=== PATIENT | male | born 1980 | race American Indian/Alaskan Native ===

== ENCOUNTER 2017-12-01 16:55 | Emergency (ER) | payer OTHER ==
[2017-12-01 17:04] VITALS: BP 129/79; PULSE 118; RESP 18; TEMP 98.7; O2SAT 98
[2017-12-01] MEDS ORDERED: Sodium Chloride 0.9% 1,000 ML IV STA ×2 (18:00→18:53)
--- NOTE | 2017-12-01 18:06 | ED PDOC ---
HPI:Nausea, Vomiting, Diarrhea Time Seen by Provider: 12/01/17 17:55 Chief Complaint (Nursing): Abdominal Pain Chief Complaint (Provider): Diarrhea History Per: Patient, Family History/Exam Limitations: no limitations Additional Complaint(s): Pt reports multiple episodes of diarrhea since 11 PM yesterday, associated with nausea and decreased appetite, abdominal pain only after drinking something, + tactile temp. Last took Motrin @ 5 AM today. Denies vomiting, hematochezia. Ate out last PM. Past Medical History Reviewed: Nursing Documentation, Vital Signs Vital Signs: Last Vital Signs Temp 98.7 F 12/01/17 17:00 Pulse 118 H 12/01/17 17:00 Resp 18 12/01/17 17:00 BP 129/79 12/01/17 17:00 Pulse Ox 98 12/01/17 17:00 - Medical History PMH: Back Problems (multiple herniated disks) - Surgical History Surgical History: No Surg Hx - Family History Family History: States: Unknown Family Hx - Social History Current smoker - smoking cessation education provided: No Alcohol: None - Home Medications Home Medications: Ambulatory Orders Medication Instructions Recorded Dicyclomine [Bentyl] 20 mg PO BID #30 tab 12/01/17 - Allergies Allergies/Adverse Reactions: Allergies Allergy/AdvReac Type Severity Reaction Status Date / Time No Known Allergies Allergy Verified 10/04/15 19:16 Review of Systems Constitutional: Positive for: Fever (Tactile), Chills, Sweats. Negative for: Weakness Cardiovascular: Negative for: Chest Pain Respiratory: Negative for: Cough, Shortness of Breath Gastrointestinal: Positive for: Nausea, Abdominal Pain, Diarrhea. Negative for : Vomiting Genitourinary Male: Negative for: Dysuria, Hematuria Musculoskeletal: Negative for: Neck Pain, Back Pain Skin: Negative for: Rash, Lesions Neurological: Negative for: Headache Physical Exam - Reviewed Nursing Documentation Reviewed: Yes Vital Signs Reviewed: Yes - Physical Exam Appears: Positive for: Well, No Acute Distress Skin: Positive for: Normal Color, Warm, Dry ENT: Positive for: Other (MM dry) Neck: Positive for: Normal Cardiovascular/Chest: Positive for: Tachycardia. Negative for: Irregularly Irregular Respiratory: Positive for: Normal Breath Sounds. Negative for: Rales, Rhonchi, Wheezing Gastrointestinal/Abdominal: Positive for: Normal Exam, Bowel Sounds, Soft. Negative for: Tenderness Back: Positive for: Normal Inspection Neurologic/Psych: Positive for: Alert, Oriented - Laboratory Results Result Diagrams: 12/01/17 18:34 12/01/17 18:34 - ECG O2 Sat by Pulse Oximetry: 98 Medical Decision Making Medical Decision Makin yo male with nausea and diarrhea. - labs - IVF - Zofran - stool culture Disposition - Clinical Impression Clinical Impression: Diarrhea - Disposition Referrals: [facility] [place] [Outside] Disposition: Transfer of Care Disposition Time: 19:00 Condition: STABLE Prescriptions: Dicyclomine [Bentyl] 20 mg PO BID #30 tab Instructions: Diarrhea in Adolescents and Adults Forms: [employer] (Jordanian) Patient Signed Over To: Lamine Rutledge
[2017-12-01 18:39] LABS: BASO % 0.3 % (0.0-2.0); EOS % 0.1 % (0.0-4.0); HEMOGLOBIN 19.3 g/dL (12.0-18.0); LYMPH # 0.6 K/uL (1.0-4.3); LYMPH % 5.1 % (20.0-40.0); MEAN CELL VOLUME 89.8 fl (80.0-94.0); MEAN CORPUSCULAR HEMOGLOBIN 31.5 pg (27.0-31.0); MEAN PLATELET VOLUME 8.9 fl (7.2-11.7); MONO # 0.6 K/uL (0.0-0.8); MONO % 5.6 % (0.0-10.0); NEUT # 10.1 K/uL (1.8-7.0); NEUT % 88.9 % (50.0-75.0); NRBC % 0.5 % (0.0-0.0); PLATELET COUNT 229 K/uL (130-400); RBC 6.14 Mil/uL (4.40-5.90); WHITE BLOOD COUNT 11.4 K/uL (4.8-10.8)
[2017-12-01 18:59] LABS: ALB/GLOB RATIO 1.1 (1.0-2.1); ALBUMIN 4.8 g/dL (3.5-5.0); ALT/SGPT 60 U/L (21-72); AST/SGOT 44 U/L (17-59); BLOOD UREA NITROGEN 20 mg/dl (9-20); CALCIUM 9.4 mg/dL (8.4-10.2); GFR AFRICAN-AMERICAN > 60; GFR NON-AFRICAN AMERICAN 56; LIPASE 124 U/L (23-300)
[2017-12-01 20:27] LABS: SQUAMOUS EPITHIAL < 1 /hpf (0-5); URINE BILIRUBIN NEGATIVE (NEGATIVE); URINE BLOOD NEGATIVE (NEGATIVE); URINE CLARITY SLIGHTY-CLOUDY (Clear); URINE COLOR YELLOW (YELLOW); URINE GLUCOSE (UA) NEG (Normal); URINE LEUKOCYTE ESTERASE NEG Leu/uL (Negative); URINE PROTEIN 30 mg/dL (NEGATIVE); URINE UROBILINOGEN 0.2-1.0 mg/dL (0.2-1.0)
[2017-12-01 21:02] LABS: BANDS 2 % (0-2); LYMPHOCYTE 2 % (20-50); MONOCYTE 6 % (0-10); NEUTROPHIL 90 % (42-75); TOTAL CELLS COUNTED 100
[2017-12-01 21:03] LABS: HYPERSEGMENTATION PRESENT; PLATELET ESTIMATE NORMAL (NORMAL)
--- NOTE | 2017-12-01 22:12 | ED PDOC ---
- Laboratory Results Result Diagrams: 12/01/17 18:34 12/01/17 18:34 - ECG O2 Sat by Pulse Oximetry: 98 Pulse Ox Interpretation: Normal Medical Decision Making Medical Decision MakinPM Patient endorsed to me pending re-eval after fluids 10PM Patient tolerating PO and feeling much better, advised to avoid anti-diarrheals as symptoms are likely to resolve on their own. Adivsed to drink plenty of fluids. Return precautions given. Disposition - Clinical Impression Clinical Impression: Diarrhea - POA Present On Arrival: None - Disposition Referrals: [facility] [Outside] Disposition: Routine/Home Disposition Time: 22:19 Condition: IMPROVED Prescriptions: Dicyclomine [Bentyl] 20 mg PO BID #30 tab Instructions: Diarrhea in Adolescents and Adults Forms: [employer] (Slovak)
== END 2017-12-01 23:15 | disposition home or self-care (01) ==
LOC: H.ER 16:55
DX: R19.7 Diarrhea, unspecified (principal)
CPT/HCPCS: 80053; 81003; 83690; 85025; 96360; 99283; J2405; J7040

== ENCOUNTER 2018-08-08 08:14 | Emergency (ER) | payer BC, OTHER ==
[2018-08-08 08:21] VITALS: RESP 18; TEMP 97; O2SAT 98
[2018-08-08 08:22] VITALS: BMI 24.3
[2018-08-08 09:20] VITALS: BP 130/78; PULSE 90
--- NOTE | 2018-08-08 09:34 | ED PDOC ---
HPI: Male Pain Time Seen by Provider: 08/08/18 08:38 Chief Complaint (Nursing): Lower Extremity Problem/Injury Chief Complaint (Provider): Male Genitourinary History Per: Patient History/Exam Limitations: no limitations Onset/Duration Of Symptoms: Days Current Symptoms Are (Timing): Still Present Quality Of Discomfort: "Pain" Associated Symptoms: denies: Fever, Chills, Nausea, Vomiting Additional Complaint(s): 37 y/o male with no significant PMHx presents to the ED for evaluation of left sided groin pain. Patient reports of injuring his left side of his groin while taking a wide step during wrestling. Patient believes he may have pulled something and further states area is swollen and bruised. Patient is concerned for a possible hernia. Patient additionally reports of being evaluated at a [facility] yesterday and was told to come to the ER for a possible CT or US. Otherwise, patient denies any discharge, blood, fever, dysuria, chills, nausea and vomiting. PMD: in [place] Past Medical History Reviewed: Historical Data, Nursing Documentation, Vital Signs Vital Signs: Last Vital Signs Temp 97 F L 08/08/18 08:20 Pulse 90 08/08/18 09:19 Resp 18 08/08/18 09:19 BP 130/78 08/08/18 09:19 Pulse Ox 98 08/08/18 09:19 - Medical History PMH: Back Problems (multiple herniated disks) - Surgical History Surgical History: No Surg Hx - Family History Family History: States: Unknown Family Hx - Social History Alcohol: Social - Home Medications Home Medications: Ambulatory Orders Medication Instructions Recorded Dicyclomine [Bentyl] 20 mg PO BID #30 tab 12/01/17 - Allergies Allergies/Adverse Reactions: Allergies Allergy/AdvReac Type Severity Reaction Status Date / Time No Known Allergies Allergy Verified 10/04/15 19:16 Review of Systems ROS Statement: Except As Marked, All Systems Reviewed And Found Negative Constitutional: Negative for: Fever, Chills Gastrointestinal: Negative for: Nausea, Vomiting Genitourinary Male: Positive for: Other (Left sided groin pain). Negative for: Dysuria Physical Exam - Reviewed Nursing Documentation Reviewed: Yes Vital Signs Reviewed: Yes - Physical Exam Appears: Positive for: No Acute Distress Head Exam: Positive for: ATRAUMATIC, NORMOCEPHALIC Skin: Positive for: Normal Color, Warm, Dry Eye Exam: Positive for: Normal appearance, EOMI, PERRL Neck: Positive for: Normal, Painless ROM Cardiovascular/Chest: Positive for: Regular Rate, Rhythm. Negative for: Murmur Respiratory: Positive for: Normal Breath Sounds. Negative for: Respiratory Distress Gastrointestinal/Abdominal: Positive for: Normal Exam, Soft. Negative for: Tenderness Male Genital Exam: Positive for: normal genitalia, normal prostate, no hernia, inguinal tenderness (mild tenderness to the left inguinal canal), urethral discharge, other ( present in room during exam). Negative for: bleeding, hernia mass, scrotum tenderness (R), scrotum tenderness (L), testicular tenderne ss (R), testicular tenderness (L) Extremity: Positive for: Normal ROM. Negative for: Deformity Neurologic/Psych: Positive for: Alert, Oriented. Negative for: Motor/Sensory Deficits - ECG O2 Sat by Pulse Oximetry: 98 (RA) Pulse Ox Interpretation: Normal Medical Decision Making Medical Decision Making: Time: 917 -- Based on physical exam, discussed with patient advised there is no need for US or CT at this time. Possible hernia unlikely. Patient advised to follow up with PMD. Return precautions provided. Scribe Attestation: Documented by Ivette Sung, acting as a scribe for Gissel Figueroa MD. Provider Scribe Attestation: All medical record entries made by the Scribe were at my direction and personally dictated by me. I have reviewed the chart and agree that the record accurately reflects my personal performance of the history, physical exam, medical decision making, and the department course for this patient. I have also personally directed, reviewed, and agree with the discharge instructions and disposition. Disposition - Clinical Impression Clinical Impression: Left inguinal pain - Patient ED Disposition Is Patient to be Admitted: No Counseled Patient/Family Regarding: Diagnosis - Disposition Disposition: Routine/Home Disposition Time: 09:18 Condition: STABLE Additional Instructions: Followup with your personal physician. Return for urgent evaluation if worsening pain, swelling, fever, inability to pass urine, inability to eat or have bowel movements. Instructions: Groin Strain Forms: [employer] (Ukrainian)
== END 2018-08-08 09:18 | disposition home or self-care (01) ==
LOC: H.ER 08:14
DX: R10.30 Lower abdominal pain, unspecified (principal)